=== PATIENT | female | born 1960 | race Caucasian/White ===

== ENCOUNTER 2020-10-15 03:40 | Emergency (ER) | payer BC ==
[2020-10-15] MEDS ORDERED: Aspirin 81 MG Tab.Chew PO ONE (03:55)
[2020-10-15] MEDS ORDERED: Sodium Chloride 0.9% 10 ML Syringe FLUSH PRN (04:05)
[2020-10-15] MEDS ORDERED: Ondansetron 4 MG/2 ML SDV IVPUSH ONE ×2 (04:07→09:36)
[2020-10-15] MEDS ORDERED: HYDROmorphone 1 MG/ML Syringe IVPUSH ONE ×4 (04:08→09:36)
[2020-10-15] MEDS ORDERED: Ketorolac 15 MG/ML SDV IVPUSH ONE (04:09)
[2020-10-15] MEDS ORDERED: Sodium Chloride 0.9% 1,000 ML IV SCH (04:15)
--- NOTE | 2020-10-15 04:47 | EDM.PDOC ---
ED HPI GENERAL MEDICAL PROBLEM - General Chief Complaint: Chest Pain Stated Complaint: Chest pain, back pain, N/V, abdominal pain Time Seen by Provider: 10/15/20 03:45 Source of Information: Reports: Patient History Limitations: Reports: No Limitations - History of Present Illness INITIAL COMMENTS - FREE TEXT/NARRATIVE: Pt. presents to ER with complaints of mid chest pain with radiation into the back. Pt. states that the symptoms started at about midnight. She states that she is nauseated and vomited about 8 times a home. Pt. states that she was diaphoretic at home. She states that she has never had this pain in the past. She states that the discomfort is worse when lying on back and states that she prefers to sit upright. Pt. states that it radiates into upper back, upper abdomen, and neck. Pt. denies any black or tarry stools. No diarrhea. Denies any recent illness. She denies any cough. No chest congestion. No fever or chills. She denies any weakness, lightheadedness, or palpitations. She is an active smoker. She is a patient of Dr. Collado. Pt. has a history of hypertension and hyperlipidemia. Upper Abdomen Pain Score (Numeric/FACES): 6 mid sternal chest Pain Score (Numeric/FACES): 9 - Related Data Allergies Allergy/AdvReac Type Severity Reaction Status Date / Time No Known Allergies Allergy Verified 10/15/20 04:40 Home Meds: Home Meds Hydrocodone/Acetaminophen [Hydrocodon-Acetaminophen 5-300] 1 - 2 tab PO Q4HR PRN 04/14/13 [History] amLODIPine [Norvasc] 10 mg PO DAILY 04/14/13 [History] Albuterol Sulfate [Albuterol Sulfate Hfa] 2 puff INH Q4H PRN 10/15/20 [History] Cholecalciferol (Vitamin D3) [Vitamin D3] 2,000 units PO DAILY 10/15/20 [History] Cyclobenzaprine [Flexeril] 2 tab PO BEDTIME PRN 10/15/20 [History] Furosemide [Lasix] 20 mg PO DAILY 10/15/20 [History] Losartan Potassium 100 mg PO DAILY 10/15/20 [History] Potassium Gluconate [Potassium] 99 mg PO DAILY 10/15/20 [History] Rosuvastatin Calcium 20 mg PO DAILY 10/15/20 [History] bisoproloL fumarate [Bisoprolol Fumarate] 5 mg PO DAILY 10/15/20 [History] traZODone 50 mg PO BEDTIME 10/15/20 [History] Past Medical History Cardiovascular History: Reports: High Cholesterol, Hypertension Respiratory History: Reports: Other (See Below) Other Respiratory History: Tobacco use disorder Musculoskeletal History: Reports: Back Pain, Chronic, Other (See Below) Other Musculoskeletal History: Neck pain Dermatologic History: Reports: Cellulitis, Other (See Below) - Past Surgical History Female Surgical History: Reports: Hysterectomy, Other (See Below) Other Female Surgeries/Procedures: Symptomatic menopause. Dense breasts Social & Family History - Family History Family Medical History: No Pertinent Family History - Living Situation & Occupation Living situation: Reports: , with Spouse Occupation: Employed (correction officer head) ED ROS GENERAL - Review of Systems Review Of Systems: See Below Constitutional: Reports: No Symptoms HEENT: Reports: No Symptoms Respiratory: Reports: Pleuritic Chest Pain Cardiovascular: Reports: Chest Pain. Denies: Dyspnea on Exertion, Edema, Lightheadedness, Orthopnea, Palpitations, PND, Syncope Endocrine: Reports: No Symptoms GI/Abdominal: Reports: Abdominal Pain. Denies: Black Stool, Bloody Stool, Hematochezia, Melena : Denies: Dysuria, Hematuria Musculoskeletal: Reports: Back Pain Skin: Reports: Diaphoresis Neurological: Reports: No Symptoms Psychiatric: Reports: No Symptoms Hematologic/Lymphatic: Reports: No Symptoms Immunologic: Reports: No Symptoms ED EXAM, GENERAL - Physical Exam Exam: See Below Exam Limited By: No Limitations General Appearance: Alert, WD/WN, No Apparent Distress Throat/Mouth: Normal Inspection, Normal Lips, Normal Voice, No Airway Compromise Head: Atraumatic, Normocephalic Neck: Normal Inspection, Supple, Non-Tender Respiratory/Chest: No Respiratory Distress, Lungs Clear, No Accessory Muscle U se, Decreased Breath Sounds, Other (Pain on palpation of R upper back area. Pt. states is worse with deep breathing, resulting in poor inspiratory effort.) Cardiovascular: Normal Peripheral Pulses, Regular Rate, Rhythm, No Edema, No Gallop, No JVD, No Murmur Peripheral Pulses: 4+: Radial (L) GI/Abdominal: Normal Bowel Sounds, Soft, Non-Tender, No Organomegaly, No Distention, No Abnormal Bruit, No Mass (Female) Exam: Deferred Rectal (Female) Exam: Deferred Back Exam: Normal Inspection, Decreased Range of Motion Extremities: Normal Inspection, Normal Range of Motion, Non-Tender, Normal Capillary Refill, No Pedal Edema Neurological: Alert, Oriented, CN II-XII Intact, Normal Cognition, Normal Gait, Normal Reflexes, No Motor/Sensory Deficits Psychiatric: Normal Affect, Normal Mood Skin Exam: Warm, Dry (Skin dry on arrival to ER, history of diaphoresis.), Intact, Normal Color, No Rash Lymphatic: No Adenopathy Course - Vital Signs Last Recorded V/S: Last Vital Signs Temp 36.3 C 10/15/20 07:43 Pulse 76 10/15/20 07:43 Resp 16 10/15/20 07:43 BP 113/60 10/15/20 07:43 Pulse Ox 96 10/15/20 07:43 - Orders/Labs/Meds Orders: Active Orders 24 hr Category Date Time Status PE Chest [Ang Chest] [CT] Stat Exams 10/15/20 05:00 Taken Sodium Chloride 0.9% [Normal Saline] 1,000 ml Med 10/15/20 04:15 Active IV ASDIRECTED Sodium Chloride 0.9% [Saline Flush] Med 10/15/20 04:05 Active 10 ml FLUSH ASDIRECTED PRN Peripheral IV Insertion Adult [OM.PC] Routine Oth 10/15/20 04:06 Ordered Medication Orders Sodium Chloride (Normal Saline) 1,000 mls @ 1,000 mls/hr IV ASDIRECTED IVA Last Admin: 10/15/20 04:12 Dose: 1,000 mls/hr Documented by: JUDSON Sodium Chloride (Sodium Chloride 0.9% 10 Ml Syringe) 10 ml FLUSH ASDIRECTED PRN PRN Reason: Keep Vein Open Labs: Laboratory Tests 10/15/20 10/15/20 10/15/20 Range/Units 04:10 04:10 04:22 WBC 9.0 (4.0-10.0) x10^3/uL RBC 5.16 (4.00-5.50) x10^6/uL Hgb 16.2 H (12.0-16.0) g/dL Hct 47.3 H (33.0-47.0) % MCV 91.7 (78.0-93.0) fL MCH 31.4 (26.0-32.0) pg MCHC 34.2 (32.0-36.0) g/dL RDW Coeff of Kandis 13.1 (10.0-15.0) % Plt Count 188 (130-400) x10^3/uL Neut % (Auto) 62.5 (50.0-80.0) % Lymph % (Auto) 25.5 (25.0-50.0) % [place] % (Auto) 10.3 (2.0-11.0) % Eos % (Auto) 1.4 (0.0-4.0) % Baso % (Auto) 0.3 (0.2-1.2) % PT 9.6 L (9.9-12.5) SEC INR 0.9 L (2.0-3.5) APTT (25.6-32.8) SEC D-Dimer, Quantitative (<=0.58) mg/LFEU Sodium 138 (136-145) mmol/L Potassium 3.6 (3.5-5.1) mmol/L Chloride 102 (98-107) mmol/L Carbon Dioxide 29 (21-32) mmol/L Anion Gap 10.6 (5-15) mmol/L BUN 25 H (7-18) mg/dL Creatinine 0.8 (0.55-1.02) mg/dL Est Cr Clr Drug Dosing 72.63 mL/min Estimated GFR (MDRD) > 60 Glucose 126 H (70-99) mg/dL Calcium 9.6 (8.5-10.1) mg/dL Corrected Calcium 9.8 (8.5-10.1) mg/dL Magnesium 2.0 (1.8-2.4) mg/dL Total Bilirubin 0.4 (0.2-1.0) mg/dL AST 17 (15-37) U/L ALT 26 (14-59) U/L Alkaline Phosphatase 107 (46-116) U/L Troponin I High Sens 9 (<=51) ng/L C-Reactive Protein < 0.2 (<=0.9) mg/dL Total Protein 7.8 (6.4-8.2) g/dL Albumin 3.7 (3.4-5.0) g/dL Globulin 4.1 Albumin/Globulin Ratio 0.90 08/02/21 Range/Units 04:22 WBC (4.0-10.0) x10^3/uL RBC (4.00-5.50) x10^6/uL Hgb (12.0-16.0) g/dL Hct (33.0-47.0) % MCV (78.0-93.0) fL MCH (26.0-32.0) pg MCHC (32.0-36.0) g/dL RDW Coeff of Kandis (10.0-15.0) % Plt Count (130-400) x10^3/uL Neut % (Auto) (50.0-80.0) % Lymph % (Auto) (25.0-50.0) % [place] % (Auto) (2.0-11.0) % Eos % (Auto) (0.0-4.0) % Baso % (Auto) (0.2-1.2) % PT (9.9-12.5) SEC INR (2.0-3.5) APTT 24.7 L (25.6-32.8) SEC D-Dimer, Quantitative 4.19 H (<=0.58) mg/LFEU Sodium (136-145) mmol/L Potassium (3.5-5.1) mmol/L Chloride (98-107) mmol/L Carbon Dioxide (21-32) mmol/L Anion Gap (5-15) mmol/L BUN (7-18) mg/dL Creatinine (0.55-1.02) mg/dL Est Cr Clr Drug Dosing mL/min Estimated GFR (MDRD) Glucose (70-99) mg/dL Calcium (8.5-10.1) mg/dL Corrected Calcium (8.5-10.1) mg/dL Magnesium (1.8-2.4) mg/dL Total Bilirubin (0.2-1.0) mg/dL AST (15-37) U/L ALT (14-59) U/L Alkaline Phosphatase (46-116) U/L Troponin I High Sens (<=51) ng/L C-Reactive Protein (<=0.9) mg/dL Total Protein (6.4-8.2) g/dL Albumin (3.4-5.0) g/dL Globulin Albumin/Globulin Ratio Meds: Medications Generic Name Dose Route Start Last Admin Trade Name Lilibeth PRN Reason Stop Dose Admin Sodium Chloride 1,000 mls @ 1,000 mls/hr 10/15/20 04:15 10/15/20 04:12 Normal Saline IV 1,000 mls/hr ASDIRECTED IVA Administration Sodium Chloride 10 ml 10/15/20 04:05 Sodium Chloride 0.9% 10 Ml Syringe FLUSH ASDIRECTED PRN Keep Vein Open Discontinued Medications Generic Name Dose Route Start Last Admin Trade Name Lilibeth PRN Reason Stop Dose Admin Aspirin 324 mg 10/15/20 03:55 10/15/20 03:57 Aspirin 81 Mg Tab.Chew PO 10/15/20 03:56 324 mg ONETIME ONE Administration Hydromorphone HCl 1 mg 10/15/20 04:08 10/15/20 04:16 Hydromorphone 1 Mg/Ml Syringe IVPUSH 10/15/20 04:09 1 mg ONETIME ONE Administration Hydromorphone HCl 1 mg 10/15/20 04:48 10/15/20 04:52 Hydromorphone 1 Mg/Ml Syringe IVPUSH 10/15/20 04:49 1 mg ONETIME ONE Administration Hydromorphone HCl 1 mg 10/15/20 07:25 10/15/20 07:38 Hydromorphone 1 Mg/Ml Syringe IVPUSH 10/15/20 07:26 1 mg ONETIME ONE Administration Iopamidol 100 ml 10/15/20 05:21 10/15/20 05:48 Iopamidol 755 Mg/Ml 100 Ml Bottle IVPUSH 10/15/20 05:22 100 ml ONETIME ONE Administration Ketorolac Tromethamine 15 mg 10/15/20 04:09 10/15/20 04:25 Ketorolac 15 Mg/Ml Sdv IVPUSH 10/15/20 04:10 15 mg ONETIME ONE Administration Ondansetron HCl 4 mg 10/15/20 04:07 10/15/20 04:14 Ondansetron 4 Mg/2 Ml Sdv IVPUSH 10/15/20 04:08 4 mg ONETIME ONE Administration - Radiology Interpretation Free Text/Narrative:: CTA chest obtained. No PE noted. Circumferential wall thickening of descending thoracic aorta, consider aortitis, penetrating atherosclerotic plaque or dissection. 2.8 cm pericardial cyst near root of aorta. Departure - Departure Time of Disposition: 08:48 Disposition: DC/Tfer to Acute Hospital 02 Clinical Impression: Dissection of aorta - Discharge Information Referrals: PCP,None [Ordering Only Provider] - Forms: ED Department Discharge, Interfacility Transfer STEP[facility] Sepsis Event Note (ED) - Evaluation Sepsis Screening Result: No Definite Risk - Focused Exam Vital Signs: Vital Signs Temp Pulse Resp BP Pulse Ox 10/15/20 07:43 36.3 C 76 16 113/60 96 10/15/20 05:20 70 16 163/70 H 93 L 10/15/20 03:40 36.7 C 74 14 184/90 H 96 - Problem List Review Problem List Initiated/Reviewed/Updated: Yes - My Orders Last 24 Hours: My Active Orders 10/15/20 04:05 Sodium Chloride 0.9% [Saline Flush] 10 ml FLUSH ASDIRECTED PRN 10/15/20 04:06 Peripheral IV Insertion Adult [OM.PC] Routine 10/15/20 04:15 Sodium Chloride 0.9% [Normal Saline] 1,000 ml IV ASDIRECTED 10/15/20 05:00 PE Chest [Ang Chest] [CT] Stat - Assessment/Plan Last 24 Hours: My Active Orders 10/15/20 04:05 Sodium Chloride 0.9% [Saline Flush] 10 ml FLUSH ASDIRECTED PRN 10/15/20 04:06 Peripheral IV Insertion Adult [OM.PC] Routine 10/15/20 04:15 Sodium Chloride 0.9% [Normal Saline] 1,000 ml IV ASDIRECTED 10/15/20 05:00 PE Chest [Ang Chest] [CT] Stat Plan: Discussed findings with Dr. Bunn, vascular surgery. She feels that this is an aortic dissection. Plan is to transfer pt. to [facility] for further treatment/evaluation. All questions were answered. Dr. Watters is accepting.
[2020-10-15 04:54] LABS: CHLORIDE,CL 102 mmol/L (98-107); SODIUM,NA 138 mmol/L (136-145)
[2020-10-15 05:00] LABS: PTT,PARTIAL THROMBOPLSTIN TIME 24.7 SEC (25.6-32.8)
[2020-10-15 05:00] LABS: ANION GAP 10.6 mmol/L (5-15)
[2020-10-15] MEDS ORDERED: Iopamidol 755 Mg/ML 100 ML Bottle IVPUSH ONE (05:21)
--- NOTE | 2020-10-15 09:43 | CT ---
[id number] CT/CTA Chest EXAM: CT ANGIOGRAM CHEST INDICATION: CHEST PAIN, POSITIVE D DIMER. COMPARISON: None. DISCUSSION: The pulmonary arteries are normal in appearance with no emboli identified. Multiple right thyroid nodules. Largest measures up to 3.3 cm. Dependent atelectasis at the lung bases bilaterally. No airspace consolidation. No pneumothorax. No suspicious pulmonary nodules or masses.No pleural or pericardial effusion. Normal heart size. Coronary artery disease. Atherosclerotic calcifications of the aorta and its branches. No mediastinal, hilar or axillary lymphadenopathy. The visualized left adrenal nodule measuring up to 1.9 cm. IMPRESSION: 1. No evidence of acute pulmonary embolism. Fantasma Calixto DO 10/15/20 0942 Thank you for allowing us to participate in the care of your patient.
== END 2020-10-15 09:50 | disposition short-term general hospital (02) ==
LOC: VM.ED 03:40
DX: I71.01 Dissection of thoracic aorta (principal); E78.00 Pure hypercholesterolemia, unspecified; I10 Essential (primary) hypertension; Z79.899 Other long term (current) drug therapy
CPT/HCPCS: 36415; 71275; 80053; 83735; 84484; 85025; 85379; 85610; 85730; 86140; 93005; 96374; 96375; 96376; 99284; 99285-25; A9270-GY; J1170; J1885; J2405; J7030; Q9967

== ENCOUNTER 2023-08-21 08:20 | Day surgery (SDC) | payer BC ==
[2023-08-21] MEDS: Lactated Ringers 1,000 ML IV SCH (08:49)
[2023-08-21] MEDS ORDERED: Midazolam 1 MG/ML 2 ML SDV ONE (11:04)
[2023-08-21] MEDS ORDERED: fentaNYL 100 MCG/2 ML SDV ONE (11:04)
[2023-08-21] MEDS ORDERED: Propofol 200 MG/20 ML SDV ONE ×2 (11:04→11:27)
== END 2023-08-21 12:33 | disposition home or self-care (01) ==
LOC: VM.SDS 08:20
PROVIDERS: ATTEND Student in an Organized Health Care Education/Training Program
DX: Z12.11 Encounter for screening for malignant neoplasm of colon (principal); D12.3 Benign neoplasm of transverse colon; E11.9 Type 2 diabetes mellitus without complications; I10 Essential (primary) hypertension; E78.1 Pure hyperglyceridemia; G47.00 Insomnia, unspecified; E66.9 Obesity, unspecified; Z79.84 Long term (current) use of oral hypoglycemic drugs; Z79.4 Long term (current) use of insulin; Z79.899 Other long term (current) drug therapy
CPT/HCPCS: 00811; 82947; J2250; J2704; J3010; J7120

== ENCOUNTER 2025-02-03 07:28 | Day surgery (SDC) | payer BC ==
[~2025-02-03 07:28] MED LIST: Lactated Ringers 1,000 ML IV SCH
[2025-02-03] MEDS: Lactated Ringers 1,000 ML IV SCH (07:58)
[2025-02-03] MEDS ORDERED: fentaNYL 100 MCG/2 ML SDV ONE (08:34)
[2025-02-03] MEDS ORDERED: Propofol 200 MG/20 ML SDV ONE ×2 (08:34→09:54)
== END 2025-02-03 10:43 | disposition home or self-care (01) ==
LOC: VM.SDS 07:28
PROVIDERS: ATTEND Student in an Organized Health Care Education/Training Program
DX: Z12.11 Encounter for screening for malignant neoplasm of colon (principal); K51.40 Inflammatory polyps of colon without complications; K63.89 Other specified diseases of intestine; E11.9 Type 2 diabetes mellitus without complications; E78.5 Hyperlipidemia, unspecified; I10 Essential (primary) hypertension; E66.9 Obesity, unspecified; Z68.29 Body mass index [BMI] 29.0-29.9, adult; Z86.0100 Personal history of colon polyps, unspecified; Z79.899 Other long term (current) drug therapy
CPT/HCPCS: 45385; 82947; J2704; J3010; J7120; 00811